=== PATIENT | male | born 1965 ===

== ENCOUNTER 2024-03-01 06:24 | Day surgery (SDC) | payer OTHER, SELFPAY ==
[2024-02-02 13:36] VITALS: BMI 26.9
[2024-02-02 13:55] LABS: Hematocrit 41.9 % (39.0-52.0); Hemoglobin 14.3 g/dL (13.0-18.0); Mean Corp Hgb Conc. 34.1 g/dL (33.0-37.0); Mean Corpuscular Volume 96.8 fL (80.0-94.0); Mean Platelet Volume 10.6 fL (7.4-10.4); Platelet Count 179 10^3/uL (130-400); Red Blood Cell Count 4.33 10^6/uL (4.70-6.10); Red Cell Dist. Width 12.8 % (11.5-14.5); White Blood Cell Count 4.8 10^3/uL (4.8-10.8)
[2024-02-02 14:36] LABS: Glycohemoglobin (HgbA1c) 5.1 % (4.0-5.6)
[2024-02-02 15:24] LABS: ALT (SGPT) 36 U/L (0-50); AST (SGOT) 34 U/L (17-59); Albumin 4.8 g/dl (3.5-5.0); Alkaline Phosphatase 63 U/L (38-126); Blood Urea Nitrogen 14 mg/dl (9-20); Carbon Dioxide 28 mmol/L (22-30); Chloride 101 mmol/L (98-107); Estimated Creatinine Clearance > 125 ml/min; Glucose 84 mg/dl (70-99); Potassium 4.6 mmol/L (3.5-5.1); Sodium 140 mmol/L (135-145); Total Bilirubin 1.3 mg/dl (0.2-1.3); Total Protein 7.2 g/dl (6.3-8.2); eGFR > 60.00
--- NOTE | 2024-02-17 12:18 | VNURNOTE ---
Patient is scheduled for an elective L ASHANTI on 03/01/24- he is a same day patient with Dr Song. Spoke with patient prior to surgery. Introduced role of [facility] Liaison. Patient reports that he lives with adult daughter in a MULTI story home.
There are 2 steps to enter. There is a bathroom on each level.
He currently functions independently. He will obtain a rolling walker and cane.
PCP is Dr Avani Peña.
Discussed [facility] joint protocol and post surgical plans.
Reviewed that he will have [facility] services initially and will then start outpatient PT.
Patient selects [facility] for his home care needs and will go to [facility] for outpatient PT. Advised pt to schedule outpt for of surgical week, he verbalized understanding. Advised of [facility] pet policy.
Patient is in agreement with plan and states that his daughter Bambi will be home with him. Advised to bring RW with him day of surgery. Referral placed in [facility].
Plan: [facility] per [facility] joint protocol then outpt PT at [facility] date TBD.
[2024-02-24 11:14] VITALS: BMI 26.9
[2024-03-01] VITALS (15 sets, daily range): BP systolic 93–134; BP diastolic 68–89
--- NOTE | 2024-03-01 07:54 | W.DS.TRANS ---
DC Summary - [employer]
-
Discharge Instructions:
Sleep Apnea Risk Low
Discharge Diagnosis/Procedures Left hip replacement-Dr. Song03/01/24
Diet As tolerated
Activity As tolerated,With Walker
Driving Restrictions No driving
Bathing Restrictions OK to Shower
Other Services PT
Wound Care Aquacel dressing in place then remove 7-10 days
Instructions:
Stand-Alone Forms:
Changes to Home Medications: Yes
Discharge Medications:
DC Medications w/original date entered in [employer]
Gnc Rehan Men Multivitamin 1 cap PO DAILY 02/24/24
New Age Mushroom Support 1 cap PO DAILY 02/24/24
Probiotic 1 cap PO DAILY 02/24/24
ascorbic acid (vitamin C) 1,000 mg tablet (Vitamin C) 1 g PO DAILY 02/24/24
biotin 10,000 mcg capsule 1,000 mcg PO DAILY 02/24/24
cholecalciferol (vitamin D3) 125 mcg (5,000 unit) tablet (Vitamin D3) 125 mcg PO DAILY 02/24/24
coenzyme Q10 100 mg capsule (CoQ-10) 100 mg PO DAILY 02/24/24
ginkgo biloba 1 cap PO DAILY 02/24/24
glucosamine [id number] odalis 1,500 mg-400 unit-100 mg tablet (Osteo Bi-Flex (5-Loxin)) 1 tab PO DAILY 02/24/24
omega 3-tfe-gsq-fish oil 1,200 mg (144 mg-216 mg) capsule (Fish Oil) 1 cap PO DAILY 02/24/24
tadalafil 20 mg tablet 10 mg PO DAILY PRN ED 02/24/24
zinc acetate 50 mg (zinc) capsule 50 mg PO DAILY 02/24/24
acetaminophen 500 mg capsule 1,000 mg (2 x 500 mg) PO Q6H PRN Pain #60 caps 03/01/24
aspirin 325 mg tablet 325 mg PO DAILY #30 tabs 03/01/24
celecoxib 100 mg capsule (Celebrex) 100 mg PO BID #30 caps 03/01/24
dexamethasone 4 mg tablet 4 mg PO BID #7 tabs 03/01/24
docusate sodium 100 mg capsule (Colace) 100 mg PO BID #14 caps 03/01/24
ondansetron 4 mg disintegrating tablet 4 mg PO Q8H #14 tabs 03/01/24
oxycodone 5 mg tablet 5 mg PO Q6H PRN Pain #30 tabs 03/01/24
sennosides 8.6 mg tablet (Senokot) 8.6 mg PO BID PRN Constipation #14 tabs 03/01/24
Home Medication Changes
acetaminophen 500 mg capsule 1,000 mg (2 x 500 mg) PO Q6H PRN Pain #60 caps 03/01/24
aspirin 325 mg tablet 325 mg PO DAILY #30 tabs 03/01/24
celecoxib 100 mg capsule (Celebrex) 100 mg PO BID #30 caps 03/01/24
dexamethasone 4 mg tablet 4 mg PO BID #7 tabs 03/01/24
docusate sodium 100 mg capsule (Colace) 100 mg PO BID #14 caps 03/01/24
ondansetron 4 mg disintegrating tablet 4 mg PO Q8H #14 tabs 03/01/24
oxycodone 5 mg tablet 5 mg PO Q6H PRN Pain #30 tabs 03/01/24
sennosides 8.6 mg tablet (Senokot) 8.6 mg PO BID PRN Constipation #14 tabs 03/01/24
Pending Results: No
[2024-03-01] MEDS: TYLENOL 650 MG PO (09:24)
[2024-03-01] MEDS: CELEBREX 200 MG PO (09:24)
[2024-03-01] MEDS: ANCEF 5 IV (15:06)
== END 2024-03-01 15:41 | disposition home or self-care (01) ==
LOC: SDS 06:24
PROVIDERS: ATTENDING PHYSICIAN Specialist; FAMILY PHYSICIAN Nurse Practitioner Family
PROC: 0SRB0JZ Replacement of Left Hip Joint with Synthetic Substitute, Open Approach (ICD-10-PCS; 2024-03-01)
DX: M16.12 Unilateral primary osteoarthritis, left hip (principal)
CPT/HCPCS: 27130; 36415; 73502; 80053; 83036; 85027; 87070; 93005; 97162